=== PATIENT | female | born 1960 | race Caucasian/White ===

== ENCOUNTER → 2018-06-12 12:59 | Outpatient (CLI) | payer BC, SELFPAY ==
[2018-06-16 09:41] LABS: HPV Reflexed? NOT INDICATED
== END ==
PROVIDERS: Visit Provider Obstetrics & Gynecology
DX: Z12.4 Encounter for screening for malignant neoplasm of cervix (principal)
CPT/HCPCS: 88175; G0145

== ENCOUNTER → 2021-09-09 | Outpatient (CLI) | payer BC, SELFPAY ==
[2021-09-16 08:19] LABS: HPV APTIMA, High Risk Negative (Negative)
== END | disposition home or self-care (01) ==
LOC: LABSPEC 15:37
PROVIDERS: Visit Provider Obstetrics & Gynecology
DX: Z12.4 Encounter for screening for malignant neoplasm of cervix (principal)
CPT/HCPCS: 87624; 88175; G0145

== ENCOUNTER → 2022-09-19 | Outpatient (CLI) | payer OTHER, SELFPAY ==
--- NOTE | 2022-09-19 13:14 | MRI_ITS ---
EXAM: MR LEFT LOWER EXTREMITY WITHOUT INTRAVENOUS CONTRAST, ANKLE CLINICAL INDICATION: ANKLE PAIN, heel pain TECHNIQUE: Multiplanar and multisequence MR images of the left ankle without intravenous contrast. COMPARISON: No relevant prior studies available. FINDINGS: LIGAMENTS: ANTERIOR TALOFIBULAR: Unremarkable. Intact. POSTERIOR TALOFIBULAR: Unremarkable. Intact. ANTERIOR TIBIOFIBULAR: Unremarkable. Intact. POSTERIOR TIBIOFIBULAR: Unremarkable. Intact. CALCANEOFIBULAR: Unremarkable. Intact. DELTOID: Unremarkable. Intact. SPRING: Unremarkable. Intact. LISFRANC: Unremarkable. Intact. TENDONS: ACHILLES: Unremarkable. Intact. FLEXOR: Tenosynovitis with intact tendons. EXTENSOR: Unremarkable. Intact. PERONEAL: Short segment split tear of the peroneal brevis tendon at the retromalleolar location. Tenosynovitis with intact tendons. TIBIALIS ANTERIOR: Unremarkable. Intact. TIBIALIS POSTERIOR: Unremarkable. Intact. MUSCLES: Unremarkable. Normal bulk and signal. FLUID: None. No significant joint effusion. SINUS TARSI: Sinus Tarsi is normal. TARSAL TUNNEL: Unremarkable. PLANTAR FASCIA: Marked thickening of the central cord of the plantar aponeurosis. Fluid about the periphery of the plantar fascia may represent a component of active plantar fasciitis. Focal high signal at the origin of the plantar fascia potentially represents a component of very low-grade partial-thickness tear. CARTILAGE: Unremarkable. No osteochondral lesion. Articular cartilage intact. BONES/JOINTS: Ligaments are intact. Prominent plantar calcaneal enthesophyte. No concerning bone marrow signal alterations. No osteochondral lesions at the tibiotalar articulation. OTHER SOFT TISSUES: Tendons are intact. OTHER FINDINGS: Neurovascular structures are unremarkable. MRI/Lower Ext Joint Only (Routine) IMPRESSION: 1. Short segment split tear of the peroneal brevis tendon at the retromalleolar location. Associated peroneal tenosynovitis. 2. Tenosynovitis involving the medial flexor tendons. 3. Possible plantar fasciitis. Electronically Signed: Bryon Caldwell MD at 23:01 EDT ,
== END | disposition home or self-care (01) ==
PROVIDERS: PCP Family Medicine; Referring Provider Podiatrist; Visit Provider Podiatrist
DX: M25.572 Pain in left ankle and joints of left foot (principal)
CPT/HCPCS: 73721